=== PATIENT | male | born 1955 ===

== ENCOUNTER 2018-02-25 07:57 | Inpatient (IN) | payer BC ==
[2018-02-10 10:27] VITALS: BMI 33.4
[2018-02-25] MEDS ORDERED: Midazolam 2 MG/2 ML VIAL ONE (09:03)
[2018-02-25] MEDS ORDERED: Esmolol 100 mg/10ml Inj IV ONE (09:04)
[2018-02-25] MEDS ORDERED: Rocuronium 10 mg/ml (10 ml) ONE (09:04)
[2018-02-25] MEDS ORDERED: HEPARIN-NS 5,000 UNITS/500 ML 10,000 UNIT/1,000 ML BAG IV ONE (09:42)
[2018-02-25] MEDS ORDERED: Lidocaine Hydrochloride 0 ML INJ ONE (09:43)
[2018-02-25] MEDS ORDERED: Thrombin Topical 20,000 Intl Units Spray Kit TOP ONE (09:43)
[2018-02-25] MEDS ORDERED: ceFAZolin 1 gm in NS 1 GM/100 ML BAG IVPB ONE ×2 (09:43→11:14)
[2018-02-25] MEDS ORDERED: Lactated Ringer's 1,000 ML IV ONE ×2 (11:00→14:28)
[2018-02-25] MEDS ORDERED: Sodium Chloride 0.9% 20 ML IV ONE (11:15)
[2018-02-25] MEDS ORDERED: Propofol 10 mg/ml Inj (20 ML) ONE ×2 (11:20→13:03)
[2018-02-25] MEDS ORDERED: HYDROmorphone 0.5 mg/0.5 ml ISec IVP PRN (14:21)
[2018-02-25] MEDS ORDERED: Oxycodone/Acetaminophen 5/325 mg Tab PO PRN (14:24)
--- NOTE | 2018-02-25 14:24 | PCM.SURG1 ---
Surgeon's Initial Post Op Note - Surgeon's Notes Surgeon: Dr. Stapleton Ceramic Research Engineer: Dr. Singh PGY3, Dr. Lacy PGY2 Type of Anesthesia: General Endo Pre-Operative Diagnosis: Right sided carotid stenosis Operative Findings: Right sided carotic calcified plaque Post-Operative Diagnosis: Right sided carotid stenosis Operation Performed: Right sided carotid endarterctomy with PTFE graft Specimen/Specimens Removed: Carotid Plaque Estimated Blood Loss: EBL {In ML}: 150 Blood Products Given: N/A Drains Used: [place] (Not really a bruno its a red rubber catheter) Post-Op Condition: Good Date of Surgery/Procedure: 02/25/18 Time of Surgery/Procedure: 14:23
[2018-02-25] MEDS ORDERED: Sodium Chloride 0.9% 500 ML IV ONE (14:28)
[2018-02-25] MEDS ORDERED: Lactated Ringer's 1,000 ML IV PRN (14:33)
[2018-02-25] MEDS ORDERED: Nitroglycerin 2% Ointment Foilpak UD TOP PRN (14:33)
[2018-02-25] MEDS ORDERED: DOPamine 400mg/250ml D5W 400 MG/250 ML BAG IV PRN (14:35)
--- NOTE | 2018-02-25 17:53 | CP.PCM.CON ---
<Juan Garay - Last Filed: 02/25/18 17:50> History of Present Illness - History of Present Illness History of Present Illness: Critical Care Consult Note for Dr. Correia This is a 62 year old male with PMHx HTN, CAD s/p 2 stents, Hypothyroidism who presented for elective carotid endarterectomy. Patient tolerated procedure well. Patient seen and examined in the ICU after the procedure. Patient has no complaints at this time. PMHx: HTN, CAD s/p 2 stents, Hypothyroidism PSHx: Hernia repair, PCI, right carotid endarterectomy Allergies: NKDA Social: Denies tobacco, alcohol, drugs Review of Systems - Constitutional Constitutional: absent: Chills, Fever - EENT Eyes: absent: Change in Vision Ears: absent: Decreased Hearing Nose/Mouth/Throat: absent: Nasal Congestion - Cardiovascular Cardiovascular: absent: Chest Pain - Respiratory Respiratory: absent: Dyspnea - Gastrointestinal Gastrointestinal: absent: Abdominal Pain, Nausea, Vomiting - Genitourinary Genitourinary: absent: Dysuria - Musculoskeletal Musculoskeletal: absent: Back Pain - Integumentary Integumentary: absent: Rash - Neurological Neurological: absent: Weakness - Psychiatric Psychiatric: absent: Anxiety - Endocrine Endocrine: absent: Palpitations Past Patient History - Past Medical History & Family History Past Medical History?: Yes - Past Social History Smoking Status: Current Some Days Smoker - CARDIAC Hx Cardiac Disorders: Yes (cad stents) Hx Hypercholesterolemia: Yes Hx Hypertension: Yes Other/Comment: right carotid stenosis - PULMONARY Hx Respiratory Disorders: No - NEUROLOGICAL Hx Neurological Disorder: Yes Hx Dizziness: Yes Hx Paralysis: No - HEENT Hx HEENT Problems: No - RENAL Hx Chronic Kidney Disease: No - ENDOCRINE/METABOLIC Hx Endocrine Disorders: Yes Hx Hypothyroidism: Yes - HEMATOLOGICAL/ONCOLOGICAL Hx Blood Disorders: No Hx Blood Transfusions: No Hx Blood Transfusion Reaction: No - INTEGUMENTARY Hx Dermatological Problems: No - MUSCULOSKELETAL/RHEUMATOLOGICAL Hx Musculoskeletal Disorders: Yes Hx Back Pain: Yes Hx Falls: No Hx Herniated Disk: Yes (lumbar) - GASTROINTESTINAL Hx Gastrointestinal Disorders: No - GENITOURINARY/GYNECOLOGICAL Hx Genitourinary Disorders: No - PSYCHIATRIC Hx Substance Use: No - SURGICAL HISTORY Hx Surgeries: Yes Hx Coronary Stent: Yes (x 2) Hx Herniorrhaphy: Yes (right ing) - ANESTHESIA Hx Anesthesia: Yes Hx Anesthesia Reactions: No Hx Malignant Hyperthermia: No Has any member of the family had a problem w/ anesthesia?: No Meds Allergies/Adverse Reactions: Allergies Allergy/AdvReac Type Severity Reaction Status Date / Time No Known Allergies Allergy Verified 08/25/14 10:57 - Medications Medications: Current Medications Amlodipine Besylate (Norvasc) 5 mg PO DAILY [facility] Aspirin (Ecotrin) 81 mg PO DAILY [facility] Docusate Sodium (Colace) 100 mg PO BID [facility] Heparin Sodium (Porcine) (Heparin) 5,000 units SC Q12 [facility] Lactated Ringer's (Lactated Ringer's) 1,000 mls @ 150 mls/hr IV .Q6H40M PRN PRN Reason: Systolic Blood Pressure Dopamine HCl/Dextrose (Dopamine 400mg/250ml D5w) 400 mg in 250 mls @ 7.484 mls/ hr IV .Q24H PRN; Protocol; 2 MCG/KG/MIN PRN Reason: TITRATE PER MD ORDER Levothyroxine Sodium (Synthroid) 150 mcg PO DAILY@0630 [facility] Losartan Potassium (Cozaar) 100 mg PO DAILY [facility] Nebivolol (Bystolic) 10 mg PO DAILY [facility] Nitroglycerin (Nitro-Bid 2% Oint) 1 ea TOP Q4 PRN PRN Reason: Systolic Blood Pressure Ondansetron HCl (Zofran Inj) 4 mg IVP Q6 PRN PRN Reason: Nausea/Vomiting Oxycodone/Acetaminophen (Percocet 5/325 Mg Tab) 1 tab PO Q4 PRN PRN Reason: Pain, moderate (4-7) Stop: 02/28/18 14:25 Rosuvastatin Calcium (Crestor) 10 mg PO [facility] Physical Exam - Constitutional Appears: No Acute Distress - Head Exam Head Exam: ATRAUMATIC, NORMOCEPHALIC - Eye Exam Eye Exam: EOMI, Normal appearance - ENT Exam ENT Exam: Mucous Membranes Moist - Neck Exam Additional comments: Dressing on right side of neck is clean,dry,intact - Respiratory Exam Respiratory Exam: Clear to Auscultation Bilateral. absent: Rales, Rhonchi, Wheezes - Cardiovascular Exam Cardiovascular Exam: REGULAR RHYTHM, +S1, +S2 - GI/Abdominal Exam GI & Abdominal Exam: Normal Bowel Sounds, Soft. absent: Tenderness - Extremities Exam Extremities exam: Negative for: pedal edema Additional comments: Arterial line left hand - Neurological Exam Neurological exam: Alert, CN II-XII Intact, Oriented x3 - Psychiatric Exam Psychiatric exam: Normal Affect, Normal Mood - Skin Skin Exam: Dry, Warm Results - Vital Signs Recent Vital Signs: Last Vital Signs Temp 98.5 F 02/25/18 15:30 Pulse 64 02/25/18 17:30 Resp 15 02/25/18 17:30 BP 108/58 L 02/25/18 17:30 Pulse Ox 96 02/25/18 17:30 Assessment & Plan - Assessment and Plan (Free Text) Assessment: This is a 62 year old male with PMHx HTN, CAD s/p 2 stents, hypothyroidism who presented for right carotid endarterectomy. Patient monitored in the ICU post op. Maintain normotension overnight. Neuro Awake, alert, verbal Cardio Assessment: Post op right carotid endarterectomy, Hx of CAD s/p stents, Hx of HTN ASA 81 mg PO daily starting tomorrow Bystolic 10 mg PO daily starting tomorrow Cozaar 100 mg PO daily starting tomorrow Norvasc 5 mg PO daily starting tomorrow Crestor 10 mg PO HS Maintain normotension overnight Per surgery, Dopamine drip prn to maintain SBP>90 Pulm Saturating well on nasal cannula GI Liquid diet Endocrine Assessment: Hx of hypothyroidism Synthroid 150 mcg PO daily Prophylaxis Heparin SC Q12H starting tomorrow night per surgery as he is currently post op Discussed with Dr. Correia <John Correia S - Last Filed: 02/25/18 18:32> Meds - Medications Medications: Current Medications Amlodipine Besylate (Norvasc) 5 mg PO DAILY [facility] Aspirin (Ecotrin) 81 mg PO DAILY [facility] Docusate Sodium (Colace) 100 mg PO BID [facility] Heparin Sodium (Porcine) (Heparin) 5,000 units SC Q12 [facility] Lactated Ringer's (Lactated Ringer's) 1,000 mls @ 150 mls/hr IV .Q6H40M PRN PRN Reason: Systolic Blood Pressure Dopamine HCl/Dextrose (Dopamine 400mg/250ml D5w) 400 mg in 250 mls @ 7.484 mls/ hr IV .Q24H PRN; Protocol; 2 MCG/KG/MIN PRN Reason: TITRATE PER MD ORDER Levothyroxine Sodium (Synthroid) 150 mcg PO DAILY@0630 [facility] Losartan Potassium (Cozaar) 100 mg PO DAILY [facility] Nebivolol (Bystolic) 10 mg PO DAILY [facility] Nitroglycerin (Nitro-Bid 2% Oint) 1 ea TOP Q4 PRN PRN Reason: Systolic Blood Pressure Ondansetron HCl (Zofran Inj) 4 mg IVP Q6 PRN PRN Reason: Nausea/Vomiting Oxycodone/Acetaminophen (Percocet 5/325 Mg Tab) 1 tab PO Q4 PRN PRN Reason: Pain, moderate (4-7) Stop: 02/28/18 14:25 Rosuvastatin Calcium (Crestor) 10 mg PO HS [facility] Results - Vital Signs Recent Vital Signs: Last Vital Signs Temp 97.4 F L 02/25/18 16:00 Pulse 64 02/25/18 17:30 Resp 15 02/25/18 17:30 BP 108/58 L 02/25/18 17:30 Pulse Ox 96 02/25/18 17:30 Attending/Attestation - Attestation I have personally seen and examined this patient.: Yes I have fully participated in the care of the patient.: Yes I have reviewed all pertinent clinical information: Yes Notes (Text): 02/25/18 18:32 Patient seen and examined Status post right carotid endarterectomy Overnight observation in ICU Continue present treatment
--- NOTE | 2018-02-26 02:17 | OP ---
PROCEDURE DATE: 02/25/2018 PREOPERATIVE DIAGNOSES: Transient ischemic attack, right carotid stenosis POSTOPERATIVE DIAGNOSES: Transient ischemic attack, right carotid stenosis. PROCEDURE: Right carotid endarterectomy. SURGEON: Sid Stapleton Jr., MD FAGOT MAKER: Dr. Ware. ANESTHESIOLOGIST: Judith March CRNA. INDICATIONS: The patient is an older middle aged man, two neurologic episodes which subsequently led to evaluation and have a high-grade right carotid stenosis. OPERATIVE FINDINGS: This was a very focal stenosis at the origin. There was some ulcerated plaque internally. The plaque was not removed as one piece because the external did not come out in one piece, but had very good end points. A Scoma shunt was used. A Vascu-Guard patch was placed which is a Bovine pericardial patch, and the patient did not eat or woke at the time of this dictation. DESCRIPTION OF PROCEDURE: The patient was given general anesthesia and intravenous antibiotics. The right common internal and external carotid arteries exposed. After exposure of the vessels, heparin was given. The vessel was clamped, the Scoma shunt inserted. Heparin was already given. We then carried out the endarterectomy which is very focal at the origin of the ICA. After this has been done, clean end points were checked numerous times. No tacking sutures were used. A patch was placed on top this and the wound closed. There was excellent control of bleeding. Drain was left and the Scoma shunt and the neck was closed. A small tissue drain was left. Blood loss for the procedure was 150 mL. Operation, right carotid endarterectomy. Sid Stapleton Jr., MD cc: Rowdy Holguin MD
[2018-02-26 06:23] LABS: BASO % 0.2 % (0.0-2.0); EOS # 0.1 K/uL (0.0-0.7); HEMOGLOBIN 12.9 g/dL (12.0-18.0); LYMPH # 1.2 K/uL (1.0-4.3); LYMPH % 17.4 % (20.0-40.0); MEAN CELL VOLUME 92.2 fL (80.0-94.0); MEAN CORPUSCULAR HGB CONC 34.7 g/dL (33.0-37.0); MEAN PLATELET VOLUME 8.6 fL (7.2-11.7); MONO # 0.6 K/uL (0.0-0.8); MONO % 9.1 % (0.0-10.0); NEUT % 71.3 % (50.0-75.0); RBC 4.04 Mil/uL (4.40-5.90); RED CELL DISTRIBUTION WIDTH 12.5 % (11.5-14.5)
[2018-02-26] MEDS ORDERED: Levothyroxine 150 MCG TAB PO SCH (06:30)
[2018-02-26 06:35] LABS: INR 1.1; PROTHROMBIN TIME 12.1 SECONDS (9.7-12.2)
[2018-02-26 06:39] LABS: BLOOD UREA NITROGEN 18 mg/dL (9-20); CALCIUM 8.1 mg/dl (8.6-10.4); GFR AFRICAN-AMERICAN > 60; GFR NON-AFRICAN AMERICAN > 60
--- NOTE | 2018-02-26 08:30 | CP.PCM.PN ---
Subjective - Date & Time of Evaluation Date of Evaluation: 02/26/18 Time of Evaluation: 08:26 - Subjective Subjective: Surgery: Dr. Stapleton Patient doing well this am. Complains of mild headache. He denies weakness in extremities or difficulty speaking. Per nursing no acute events overnight. Objective - Vital Signs/Intake and Output Vital Signs (last 24 hours): Temp Pulse Resp BP Pulse Ox 98.5 F 57 L 11 L 119/59 L 95 02/26/18 04:00 02/26/18 07:52 02/26/18 07:52 02/26/18 07:52 02/26/18 07:52 Intake and Output: 02/26/18 02/26/18 06:59 18:59 Intake Total 990 Output Total 1400 Balance -410 - Medications Medications: Current Medications Amlodipine Besylate (Norvasc) 5 mg PO DAILY [facility] Aspirin (Ecotrin) 81 mg PO DAILY [facility] Docusate Sodium (Colace) 100 mg PO BID [facility] Last Admin: 02/25/18 18:44 Dose: 100 mg Heparin Sodium (Porcine) (Heparin) 5,000 units SC Q12 [facility] Lactated Ringer's (Lactated Ringer's) 1,000 mls @ 150 mls/hr IV .Q6H40M PRN PRN Reason: Systolic Blood Pressure Last Admin: 02/25/18 18:44 Dose: 150 mls/hr Levothyroxine Sodium (Synthroid) 150 mcg PO DAILY@0630 [facility] Last Admin: 02/26/18 06:06 Dose: 150 mcg Losartan Potassium (Cozaar) 100 mg PO DAILY [facility] Nebivolol (Bystolic) 10 mg PO DAILY [facility] Nitroglycerin (Nitro-Bid 2% Oint) 1 ea TOP Q4 PRN PRN Reason: Systolic Blood Pressure Ondansetron HCl (Zofran Inj) 4 mg IVP Q6 PRN PRN Reason: Nausea/Vomiting Oxycodone/Acetaminophen (Percocet 5/325 Mg Tab) 1 tab PO Q4 PRN PRN Reason: Pain, moderate (4-7) Stop: 02/28/18 14:25 Rosuvastatin Calcium (Crestor) 10 mg PO HS [facility] Last Admin: 02/25/18 21:06 Dose: 10 mg - Labs Labs: 02/26/18 06:16 02/26/18 06:16 PT 12.1 SECONDS (9.7-12.2) 02/26/18 06:16 INR 1.1 02/26/18 06:16 APTT 27 SECONDS (21-34) 02/26/18 06:16 - Constitutional Appears: Non-toxic, No Acute Distress - Head Exam Head Exam: ATRAUMATIC, NORMOCEPHALIC - Eye Exam Eye Exam: EOMI, Normal appearance - ENT Exam ENT Exam: Mucous Membranes Moist Additional comments: normal protrusion of tongue. Appropriate pronunciation of repeated words. - Neck Exam Additional comments: right neck dressing CDI. No evidence of swelling. No tender to palpation. - Respiratory Exam Respiratory Exam: NORMAL BREATHING PATTERN. absent: Respiratory Distress - Cardiovascular Exam Cardiovascular Exam: REGULAR RHYTHM. absent: Tachycardia Assessment and Plan - Assessment and Plan (Free Text) Assessment: 62 y/o male s/p right CEA POD1 Plan: -ADAT -d/c A line -OOB to chair -d/c IVFs -removal of catheter in neck today -possible discharge home this afternoon -ok to resume home meds -discussed with Dr. Soto John PGY3
--- NOTE | 2018-02-26 15:20 | CP.PCM.DIS ---
Provider - Provider Date of Admission: 02/25/18 07:57 Attending physician: Sid Stapleton Jr, MD Consults: Dr. Holguin Primary doctor Dr. Correia ICU Time Spent in preparation of Discharge (in minutes): 20 Diagnosis - Discharge Diagnosis (1) CAD (coronary artery disease) Status: Chronic Priority: High Hospital Course - Lab Results Lab Results: Most Recent Lab Values WBC 7.0 K/uL (4.8-10.8) 02/26/18 06:16 RBC 4.04 Mil/uL (4.40-5.90) L 02/26/18 06:16 Hgb 12.9 g/dL (12.0-18.0) D 02/26/18 06:16 Hct 37.3 % (35.0-51.0) 02/26/18 06:16 MCV 92.2 fL (80.0-94.0) 02/26/18 06:16 MCH 32.0 pg (27.0-31.0) H 02/26/18 06:16 MCHC 34.7 g/dL (33.0-37.0) 02/26/18 06:16 RDW 12.5 % (11.5-14.5) 02/26/18 06:16 Plt Count 156 K/uL (130-400) 02/26/18 06:16 MPV 8.6 fL (7.2-11.7) 02/26/18 06:16 Neut % (Auto) 71.3 % (50.0-75.0) 02/26/18 06:16 Lymph % (Auto) 17.4 % (20.0-40.0) L 02/26/18 06:16 Clare % (Auto) 9.1 % (0.0-10.0) 02/26/18 06:16 Eos % (Auto) 2.0 % (0.0-4.0) 02/26/18 06:16 Baso % (Auto) 0.2 % (0.0-2.0) 02/26/18 06:16 Neut # (Auto) 5.0 K/uL (1.8-7.0) 02/26/18 06:16 Lymph # (Auto) 1.2 K/uL (1.0-4.3) 05/03/18 06:16 Clare # (Auto) 0.6 K/uL (0.0-0.8) 02/26/18 06:16 Eos # (Auto) 0.1 K/uL (0.0-0.7) 02/26/18 06:16 Baso # (Auto) 0.0 K/uL (0.0-0.2) 02/26/18 06:16 PT 12.1 SECONDS (9.7-12.2) 02/26/18 06:16 INR 1.1 02/26/18 06:16 APTT 27 SECONDS (21-34) 02/26/18 06:16 Sodium 143 mmol/L (132-148) 02/26/18 06:16 Potassium 4.0 mmol/L (3.6-5.2) 02/26/18 06:16 Chloride 108 mmol/L (98-107) H 02/26/18 06:16 Carbon Dioxide 29 mmol/L (22-30) 02/26/18 06:16 Anion Gap 11 (10-20) 02/26/18 06:16 BUN 18 mg/dL (9-20) 02/26/18 06:16 Creatinine 0.8 mg/dL (0.8-1.5) 02/26/18 06:16 Est GFR ( Amer) > 60 02/26/18 06:16 Est GFR (Non-Af Amer) > 60 02/26/18 06:16 Random Glucose 109 mg/dL (75-110) 02/26/18 06:16 Calcium 8.1 mg/dl (8.6-10.4) L 02/26/18 06:16 Phosphorus 3.1 mg/dL (2.5-4.5) 02/26/18 06:16 Magnesium 2.2 mg/dL (1.6-2.3) 02/26/18 06:16 - Hospital Course Hospital Course: Patient admitted through [facility] post op right CEA. Patient tolerated procedure well and was admitted to ICU for overnight care. NO acute events overnight. POD1 patient found to be in good health, no neuro deficits, ambulating, pain controlled, tolerating diet, and in suitable condition for discharge home. Discharge Exam - Head Exam Head Exam: ATRAUMATIC, NORMOCEPHALIC - Eye Exam Eye Exam: EOMI, Normal appearance - ENT Exam ENT Exam: Mucous Membranes Moist - Respiratory Exam Respiratory Exam: NORMAL BREATHING PATTERN. absent: Respiratory Distress - Cardiovascular Exam Cardiovascular Exam: REGULAR RHYTHM. absent: Tachycardia - Neurological Exam Neurological exam: Alert, Oriented x3 - Psychiatric Exam Psychiatric exam: Normal Affect, Normal Mood - Skin Skin Exam: Dry, Normal Color, Warm Discharge Plan - Follow Up Plan Condition: GOOD Disposition: HOME/ ROUTINE Patient education suggested?: Yes Instructions: High Blood Pressure (DC), Stroke (DC), Vertigo (a Type of Dizziness) (DC), Carotid Artery Disease (DC), Carotid Artery Endarterectomy (DC) , Endarterectomy (DC) Additional Instructions: See chart instructions. Please send with patient. Referrals: Sid Stapleton Jr., MD [Staff Provider] - Rowdy Holguin MD [Family Provider] -
[2018-02-26 16:09] VITALS: BP 121/61; PULSE 55; RESP 11; TEMP 98.5; O2SAT 97
== END 2018-02-26 16:02 | disposition home or self-care (01) | DRG 39 ==
LOC: C.9S 07:57 → C.9I 14:41
PROVIDERS: ADMIT Surgery Vascular Surgery; ATTEND Surgery Vascular Surgery
PROC: 0W9600Z Drainage of Neck with Drainage Device, Open Approach (ICD-10-PCS; 2018-02-25)
PROC: 03CK0ZZ Extirpation of Matter from Right Internal Carotid Artery, Open Approach (ICD-10-PCS; principal; 2018-02-25 10:30)
DX: I65.21 Occlusion and stenosis of right carotid artery (principal); E03.9 Hypothyroidism, unspecified; E78.00 Pure hypercholesterolemia, unspecified; I25.10 Atherosclerotic heart disease of native coronary artery without angina pectoris; I10 Essential (primary) hypertension; Z95.5 Presence of coronary angioplasty implant and graft; F17.210 Nicotine dependence, cigarettes, uncomplicated